=== PATIENT | female | born 1970 | race Caucasian/White ===

== ENCOUNTER → 2016-11-17 | Outpatient (CLI) | payer BC ==
--- NOTE | 2016-11-17 11:50 | DX ---
Right Foot Series 3 views History: Persistent right foot pain especially around the 4th metatarsal. Trauma about one month ago. Fell down stairs. Findings: Osseous structures are intact without fracture. Joint spaces are normal. Soft tissues are n ormal. No periosteal thickening is seen. No evidence for stress fracture response. Impression: Normal foot series.
== END ==
LOC: BMCIMAGING 11:13
PROVIDERS: ATTEND Podiatrist Foot & Ankle Surgery
DX: M84.374A Stress fracture, right foot, initial encounter for fracture (principal)

== ENCOUNTER → 2017-01-09 | Outpatient (CLI) | payer BC | LOC: FIMAGING 08:21 | PROVIDERS: ATTEND Internal Medicine Gastroenterology | DX: R14.0 Abdominal distension (gaseous) (principal) ==

== ENCOUNTER → 2017-06-04 | Outpatient (CLI) | payer BC | LOC: BMCIMAGING 09:52 | PROVIDERS: ATTEND Emergency Medicine | DX: M61.58 Other ossification of muscle, other site (principal) ==

== ENCOUNTER → 2017-06-30 | Outpatient (CLI) | payer BC | LOC: FIMAGING 07:56 | PROVIDERS: ATTEND Orthopaedic Surgery | DX: S73.192A Other sprain of left hip, initial encounter (principal); M25.852 Other specified joint disorders, left hip; Y93.9 Activity, unspecified ==

== ENCOUNTER → 2017-07-24 | Outpatient (CLI) | payer BC | LOC: FIMAGING 10:20 | PROVIDERS: ATTEND Obstetrics & Gynecology | DX: D25.1 Intramural leiomyoma of uterus (principal); Z97.5 Presence of (intrauterine) contraceptive device ==

== ENCOUNTER → 2017-08-02 | Outpatient (CLI) | payer BC | LOC: BMCIMAGING 13:59 | PROVIDERS: ATTEND Orthopaedic Surgery Hand Surgery | DX: M79.644 Pain in right finger(s) (principal) ==

== ENCOUNTER → 2017-08-04 | Outpatient (CLI) | payer BC, OTHER | LOC: BMCIMAGING 10:41 | PROVIDERS: ATTEND Family Medicine | DX: M79.641 Pain in right hand (principal) ==

== ENCOUNTER → 2017-08-28 | Outpatient (CLI) | payer BC, OTHER | LOC: FIMAGING 08:45 | PROVIDERS: ATTEND Obstetrics & Gynecology | DX: Z12.39 Encounter for other screening for malignant neoplasm of breast (principal); N63.13 Unspecified lump in the right breast, lower outer quadrant | CPT/HCPCS: G0204 ==

== ENCOUNTER 2018-01-18 11:24 | Emergency (ER) | payer BC ==
[2018-01-18 11:44] VITALS: TEMP 98.1
[2018-01-18] MEDS ORDERED: RIVAROXABAN 15 MG TAB PO ONE (13:22)
--- NOTE | 2018-01-18 13:25 | EDPHY ---
H & P Stated Complaint: RECENT HIP SURGERY. PAIN BEHIND LEFT KNEE. Time Seen by Provider: 01/18/18 13:16 HPI/ROS: CHIEF COMPLAINT: Left calf pain HISTORY OF PRESENT ILLNESS: Patient is a 47-year-old female who was 1 month out from left hip labrum repair with Dr. Reza in [place]. She has a history of factor 2 deficiency/ prothrombin genetic disorder. She took Xarelto for the 1st 2 weeks after the surgery but then stopped a week ago. Over the last few days she has developed some pain in her left calf. She is also on the Mirena. Her physical therapist recommended she come here for evaluation. She has not had a fever. No chest pain or shortness of breath. REVIEW OF SYSTEMS: Constitutional: denies: chills, fever, recent illness, recent injury EENTM: denies: blurred vision, double vision, nose congestion Respiratory: denies: cough, shortness of breath Cardiac: denies: chest pain, irregular heart rate, lightheadedness, palpitations Gastrointestinal/Abdominal: denies: abdominal pain, diarrhea, nausea, vomiting, blood streaked stools Genitourinary: denies: dysuria, frequency, hematuria, pain Musculoskeletal: See HPI Skin: denies: lesions, rash, jaundice, bruising Neurological: denies: headache, numbness, paresthesia, tingling, dizziness, weakness Hematologic/Lymphatic: denies: blood clots, easy bleeding, easy bruising Immunologic/allergic: denies: HIV/AIDS, transplant EXAM: GENERAL: Well-appearing, well-nourished and in no acute distress. HEAD: Atraumatic, normocephalic. EYES: Pupils equal round and reactive to light, extraocular movements intact, sclera anicteric, conjunctiva are normal. ENT: TMs normal, nares patent, oropharynx clear without exudates. Moist mucous membranes. NECK: Normal range of motion, supple without lymphadenopathy or JVD. LUNGS: Breath sounds clear to auscultation bilaterally and equal. No wheezes rales or rhonchi. HEART: Regular rate and rhythm without murmurs, rubs or gallops. ABDOMEN: Soft, nontender, normoactive bowel sounds. No guarding, no rebound. No masses appreciated. BACK: No CVA tenderness, no spinal tenderness, step-offs or deformities EXTREMITIES: Normal range of motion, no pitting or edema. No clubbing or cyanosis. The no tenderness with palpation of her left calf she states that actually feels better. Negative Homans. No obvious swelling or edema. NEUROLOGICAL: Cranial nerves II through XII grossly intact. Normal speech, nonweightbearing left leg. Uses crutches easily. 5/5 strength, normal movement in all extremities, normal sensation PSYCH: Normal mood, normal affect. SKIN: Warm, dry, normal turgor, no visible rashes or lesions. Source: Patient Exam Limitations: No limitations - Personal History LMP (Females 10-55): 8-14 Days Ago Current Tetanus/Diphtheria Vaccine: Yes Current Tetanus Diphtheria and Acellular Pertussis (TDAP): Yes - Medical/Surgical History Hx Asthma: No Hx Chronic Respiratory Disease: No Hx Diabetes: No Hx Cardiac Disease: No Hx Renal Disease: No Hx Cirrhosis: No Hx Alcoholism: No Hx HIV/AIDS: No Hx Splenectomy or Spleen Trauma: No Other PMH: DENIES - Family History Significant Family History: No pertinent family hx - Social History Smoking Status: Never smoked Alcohol Use: Sober Drug Use: None Constitutional: Initial Vital Signs Temperature (C) 36.7 C 01/18/18 11:39 Heart Rate 15 L 01/18/18 11:39 Respiratory Rate 13 01/18/18 11:39 Blood Pressure 122/87 H 01/18/18 11:39 O2 Sat (%) 97 01/18/18 11:39 O2 Delivery Mode Room Air Allergies/Adverse Reactions: latex Allergy (Verified 09/22/15 12:29) Rash Sulfa (Sulfonamide Antibiotics) Allergy (Verified 09/22/15 12:28) Hives Home Medications: Medication Instructions Recorded Rivaroxaban [Xarelto 15mg (*)] 15 mg PO BID #42 tab 01/18/18 Tylenol Extra Strength 01/18/18 Medical Decision Making - Diagnostics Imaging Results: Imaging Impressions Extremity Venous Study 01/18/18 12:18 Impression: Short segment deep venous thrombosis in one of the posterior tibial veins in the calf. No involvement of the popliteal vein or deep venous system in the thigh. Findings discussed with Emergency Department physician, Dr. Delisa Arnold on January 18, 2018 at 1317 hours. Imaging: Discussed imaging studies w/ body recall instructor Radiologist ED Course/Re-evaluation: Patient has a DVT. She had ultrasound ordered from triage. She has recently been on Xarelto. We will place her back on this. She declines lab work at this time. She declines further testing. Will ask case management to look for samples or coupons. Differential Diagnosis: Partial list of the Differential diagnosis considered include but were not limited to; DVT, muscle strain and although unlikely based on the history and physical exam, I also considered cellulitis, fracture, surgical infection. I discussed these differential diagnoses and the plan with the patient as well as the usual and expected course. The patient understands that the diagnosis is provisional and that in medicine we are not always correct and that further workup is often warranted. Usual and customary warnings were given. All of the patient's questions were answered. The patient was instructed to return to the emergency department should the symptoms at all worsen or return, otherwise to followup with the physician as we discussed. - Data Points Medications Given: Discontinued Medications Rivaroxaban (Xarelto) 15 mg PO EDNOW ONE Stop: 01/18/18 13:23 Last Admin: 01/18/18 13:53 Dose: 15 mg Departure - Departure Disposition: Home, Routine, Self-Care Clinical Impression: Acute DVT of left tibial vein Condition: Fair Instructions: Deep Vein Thrombosis (ED) Referrals: Zachery Gutierrez MD [Primary Care Provider] - 5-7 days, call for appt. Prescriptions: Rivaroxaban [Xarelto 15mg (*)] 15 mg PO BID #42 tab
[2018-01-18 14:02] VITALS: BP 123/74; PULSE 16; RESP 81; O2SAT 95
== END 2018-01-18 14:12 | disposition home or self-care (01) ==
DX: I82.442 Acute embolism and thrombosis of left tibial vein (principal); Z79.01 Long term (current) use of anticoagulants; Z91.040 Latex allergy status

== ENCOUNTER 2018-01-19 10:18 | Emergency (ER) | payer BC ==
--- NOTE | 2018-01-19 10:29 | EDPHY ---
H & P Time Seen by Provider: 01/19/18 10:29 HPI/ROS: CHIEF COMPLAINT: Pleuritic chest pain HISTORY OF PRESENT ILLNESS: The patient presents to the ED with a 1 day history of pleuritic chest pain. The patient was recently diagnosed with a small DVT postoperatively. The patient was restarted on Xarelto yesterday. She developed the pleuritic chest pain earlier this morning. Her symptoms have significantly improved since the onset. The patient denies any syncope, fever, cough or congestion. The patient reports her symptoms are mild in nature. She denies additional acute complaints. REVIEW OF SYSTEMS: A comprehensive 10 point review of systems is otherwise negative aside from elements mentioned in the history of present illness. Source: Patient Exam Limitations: No limitations - Medical/Surgical History Hx Asthma: No Hx Chronic Respiratory Disease: No Hx Diabetes: No Hx Cardiac Disease: No Hx Renal Disease: No Hx Cirrhosis: No Hx Alcoholism: No Hx HIV/AIDS: No Hx Splenectomy or Spleen Trauma: No Other PMH: DENIES - Social History Smoking Status: Never smoked - Physical Exam Exam: General Appearance: Alert, no distress Eyes: Pupils equal and round no pallor or injection ENT, Mouth: Mucous membranes moist Respiratory: There are no retractions, lungs are clear to auscultation Cardiovascular: Regular rate and rhythm Gastrointestinal: Abdomen is soft and nontender, no masses, bowel sounds normal Neurological: 5/5 strength all 4 extremities Skin: Warm and dry, no rashes Musculoskeletal: Neck is supple nontender Extremities: Patient does have pain with movement in her left hip which has been going on since her prior surgery Constitutional: Initial Vital Signs Temperature (C) 36.7 C 01/19/18 10:28 Heart Rate 70 01/19/18 10:28 Respiratory Rate 16 01/19/18 10:28 Blood Pressure 135/84 H 01/19/18 10:28 O2 Sat (%) 97 01/19/18 10:28 O2 Delivery Mode Room Air Allergies/Adverse Reactions: latex Allergy (Verified 09/22/15 12:29) Rash Sulfa (Sulfonamide Antibiotics) Allergy (Verified 09/22/15 12:28) Hives Home Medications: Medication Instructions Recorded Rivaroxaban [Xarelto 15mg (*)] 15 mg PO BID #42 tab 01/18/18 Tylenol Extra Strength 01/18/18 Medical Decision Making - Diagnostics EKG Interpretation: EKG: Complete interpretation has been separately recorded in the [facility] archive. Summary impression: Sinus rhythm, rate 64 Imaging Results: Imaging Impressions Chest/Thorax CTA 01/19/18 10:57 Impression: 1. No evidence of pulmonary embolus using CT protocol. Findings discussed with Miguel Angel Whitley PA-C, answering for Josh Meier at 11 :48 hour, 01/19/2018. ED Course/Re-evaluation: The patient presents to the ED for evaluation of pleuritic chest pain in the setting of a known DVT. The patient was noted to be hemodynamically stable. The patient has a normal creatinine. She was taken for CT pulmonary angiogram which demonstrates no evidence of a PE. The patient is currently anticoagulated for known DVT. At this point time I do not feel that further workup is indicated. The patient will continue to take her anticoagulation as prescribed. She is discharged home with customary aftercare instructions and return precautions. Differential Diagnosis: Differential diagnosis considered includes pulmonary embolism, pleurisy, costochondritis, pneumonia - Data Points Laboratory Results: Laboratory Results 01/19/18 10:25 01/19/18 10:25 01/19/18 01/19/18 10:25 10:25 WBC 8.75 10^3/uL 10^3/uL (3.80-9.50) RBC 4.66 10^6/uL 10^6/uL (4.18-5.33) Hgb 14.6 g/dL g/dL (12.6-16.3) Hct 41.8 % % (38.0-47.0) MCV 89.7 fL fL (81.5-99.8) MCH 31.3 pg pg (27.9-34.1) MCHC 34.9 g/dL g/dL (32.4-36.7) RDW 12.6 % % (11.5-15.2) Plt Count 282 10^3/uL 10^3/uL (150-400) MPV 9.2 fL fL (8.7-11.7) Neut % (Auto) 63.6 % % (39.3-74.2) Lymph % (Auto) 26.1 % % (15.0-45.0) [place] % (Auto) 7.9 % % (4.5-13.0) Eos % (Auto) 1.6 % % (0.6-7.6) Baso % (Auto) 0.5 % % (0.3-1.7) Nucleat RBC Rel Count 0.0 % % (0.0-0.2) Absolute Neuts (auto) 5.57 10^3/uL 10^3/uL (1.70-6.50) Absolute Lymphs (auto) 2.28 10^3/uL 10^3/uL (1.00-3.00) Absolute Monos (auto) 0.69 10^3/uL 10^3/uL (0.30-0.80) Absolute Eos (auto) 0.14 10^3/uL 10^3/uL (0.03-0.40) Absolute Basos (auto) 0.04 10^3/uL 10^3/uL (0.02-0.10) Absolute Nucleated RBC 0.00 10^3/uL 10^3/uL (0-0.01) Immature Gran % 0.3 % % (0.0-1.1) Immature Gran # 0.03 10^3/uL 10^3/uL (0.00-0.10) Sodium 139 mEq/L mEq/L (135-145) Potassium 4.0 mEq/L mEq/L (3.5-5.2) Chloride 102 mEq/L mEq/L (97-110) Carbon Dioxide 24 mEq/l mEq/l (22-31) Anion Gap 13 mEq/L mEq/L (8-16) BUN 19 mg/dL mg/dL (7-23) Creatinine 0.6 mg/dL mg/dL (0.6-1.0) Estimated GFR > 60 Glucose 80 mg/dL mg/dL (70-100) Calcium 9.3 mg/dL mg/dL (8.5-10.4) Departure - Departure Disposition: Home, Routine, Self-Care Clinical Impression: Pleurisy, DVT (deep venous thrombosis) Condition: Good Instructions: Deep Vein Thrombosis (ED) Additional Instructions: 1. Your CT scan demonstrates no evidence of a blood clot. 2. Please continue your anticoagulation as prescribed. 3. Please return to the ED for markedly worsening symptoms or other concerns. 4. Follow up with your primary care provider as scheduled Referrals: Zachery Gutierrez MD [Primary Care Provider] - As per Instructions
[2018-01-19 10:30] VITALS: O2SAT 97
--- NOTE | 2018-01-19 10:33 | CPEKG ---
Heart Rate: 64 RR Interval: 938 P-R Interval: 119 QRSD Interval: 74 QT Interval: 392 QTC Interval: 405 P [place]: 0 QRS [place]: -69 T Wave [place]: 37 EKG Severity - ABNORMAL ECG - EKG Impression: SINUS RHYTHM EKG Impression: LEFT ANTERIOR FASCICULAR BLOCK Electronically Signed By: Josh Meier 19-Jan-2018 11:09:53
[2018-01-19 10:41] LABS: PLATELET COUNT 282 10^3/uL (150-400)
[2018-01-19] MEDS ORDERED: IOPAMIDOL (ISOVUE 370) 100 ML BTL IV ONE (11:02)
[2018-01-19 11:39] VITALS: BP 111/73; PULSE 72; RESP 20; TEMP 98.6
== END 2018-01-19 12:06 | disposition home or self-care (01) ==
DX: R09.1 Pleurisy (principal); I82.409 Acute embolism and thrombosis of unspecified deep veins of unspecified lower extremity; Z91.040 Latex allergy status
CPT/HCPCS: Q9967

== ENCOUNTER → 2018-10-09 | Outpatient (CLI) | payer BC | LOC: FIMAGING 09:23 | PROVIDERS: ATTEND Internal Medicine | DX: Z12.31 Encounter for screening mammogram for malignant neoplasm of breast (principal) ==